=== PATIENT | female | born 1965 | race Two or more races ===

== ENCOUNTER 2017-09-01 07:51 | Emergency (ER) | payer OTHER ==
[~2017-09-01] VITALS: Ht 167.6 cm; Wt 56.7 kg
[2017-09-01] MEDS ORDERED: SYNTHROID50 MCG (07:57)
[2017-09-01] MEDS ORDERED: neurontin PO (12:14)
== END 2017-09-01 12:59 | disposition home or self-care (01) ==
LOC: ER 07:51
DX: R20.2 Paresthesia of skin (principal)

== ENCOUNTER → 2017-11-02 06:35 | Outpatient (CLI) | payer OTHER ==
[~2017-11-02 06:35] MED LIST: SYNTHROID50 MCG; neurontin PO
== END | disposition home or self-care (01) ==
LOC: LAB 11-01 06:56
DX: E16.1 Other hypoglycemia (principal); E03.8 Other specified hypothyroidism; E55.9 Vitamin D deficiency, unspecified

== ENCOUNTER 2021-10-19 07:35 | Outpatient (CLI) | payer OTHER | END 2021-10-19 07:46 | disposition home or self-care (01) | LOC: RAD 07:35 | PROVIDERS: ATTEND Otolaryngology Otolaryngology/Facial Plastic Surgery | DX: R59.0 Localized enlarged lymph nodes (principal); J38.4 Edema of larynx; R13.10 Dysphagia, unspecified ==